=== PATIENT | female | born 1980 | race Hispanic/Latino ===

== ENCOUNTER → 2024-01-13 | Emergency (ER) | payer OTHER ==
[~2024-01-13] MED LIST: KETOROLAC 30 MG/ML INJ ONE; Oxycodone HCl/Acetaminophen 5/325 MG TAB ONE
--- NOTE | 2024-01-13 01:23 | EDPHYS ---
Physician Documentation [facility] Name: Christina Hollingsworth Age: 43 yrs Sex: Female : 1980 Arrival Date: 01/13/2024 Time: 00:16 Bed DX3 Private MD: ED Physician Jose L Toussaint HPI: 01/12 01:17 This 43 yrs old Female presents to ER via Ambulatory with complaints of ci Toothache. 01:17 Patient is a 43-year-old female with no PMH who presents with left-sided dental pain ci that began few weeks ago. Pain is intermittent, sharp, worse in the past 2 nights. Patient here because she is unable to sleep due to pain. Patient has a dentist appointment in 2 days and wanted to come to the ED to get medicine for pain control until she sees the dentist. . MANAGER SHAREPOINT: 00:44 LMP 01/12/2024, unknown jb4 Historical: - Allergies: 00:44 No Known Allergies; jb4 - PMHx: 00:44 None; jb4 - PSHx: 00:44 tubal; wisdom teeth removal; jb4 - Immunization history:: Adult Immunizations up to date. - Social history:: Smoking status: Patient denies any tobacco usage or history of. ROS: 01:17 ENT: Positive for dental pain, Teeth pain ci Exam: 01:17 Constitutional: This is a well developed, well nourished patient who is awake, alert, ci and in no acute distress. Head/Face: Normocephalic, atraumatic. Eyes: Pupils equal round and reactive to light, extra-ocular motions intact. Lids and lashes normal. Conjunctiva and sclera are non-icteric and not injected. Cornea within normal limits. Periorbital areas with no swelling, redness, or edema. Neck: Trachea midline, no thyromegaly or masses palpated, and no cervical lymphadenopathy. Supple, full range of motion without nuchal rigidity, or vertebral point tenderness. No Meningismus. Chest/axilla: Normal chest wall appearance and motion. Nontender with no deformity. No lesions are appreciated. Cardiovascular: Regular rate and rhythm with a normal S1 and S2. No gallops, murmurs, or rubs. Normal PMI, no JVD. No pulse deficits. Respiratory: Lungs have equal breath sounds bilaterally, clear to auscultation and percussion. No rales, rhonchi or wheezes noted. No increased work of breathing, no retractions or nasal flaring. Abdomen/GI: Soft, non-tender, with normal bowel sounds. No distension or tympany. No guarding or rebound. No evidence of tenderness throughout. Back: No spinal tenderness. No costovertebral tenderness. Full range of motion. Skin: Warm, dry with normal turgor. Normal color with no rashes, no lesions, and no evidence of cellulitis. MS/ Extremity: Pulses equal, no cyanosis. Neurovascular intact. Full, normal range of motion. Neuro: Awake and alert, GCS 15, oriented to person, place, time, and situation. Cranial nerves II-XII grossly intact. Motor strength 5/5 in all extremities. Sensory grossly intact. Cerebellar exam normal. Normal gait. Psych: Awake, alert, with orientation to person, place and time. Behavior, mood, and affect are within normal limits. 01:17 ENT: Dental exam: dental caries, pain, that is moderate, Vital Signs: 00:42 BP 137 / 91; Pulse 79; Resp 16; Temp 97.5(TE); Pulse Ox 98% on R/A; Weight 79.38 kg jb4 (R); Height 5 ft. 1 in. ; Pain 10/10; 00:42 Body Mass Index 33.07 (79.38 kg, 154.94 cm) jb4 00:42 Pain Scale: Adult jb4 MDM: 00:47 Patient medically screened. ci 01:17 Differential diagnosis: dental caries, gingivitis, dental abscess, pericoronitis, ci gingivostomatitis. Data reviewed: vital signs, nurses notes. ED course: Patient presents for evaluation of left lower molar dental pain that has been ongoing for several weeks, worse in the past few days. She is nontoxic-appearing, vital signs stable. 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 Low suspicion for Fredy's angina. Plan for pain control, prophylactic antibiotic and discharged with close outpatient follow-up.. Administered Medications: 01:40 Drug: oxyCODONE-acetaminophen PO (5 mg-325 mg) 1 tabs PO once Route: PO; jb4 01:41 Follow up: Response: Medication administered at discharge. jb4 01:40 Drug: Ketorolac IM 30 mg IM once Route: IM; Site: right deltoid; jb4 01:41 Follow up: Response: Medication administered at discharge. jb4 Disposition Summary: 01/13/24 01:22 Discharge Ordered Notes: Location: Home ci Condition: Stable ci Diagnosis - Dental caries, unspecified ci Followup: ci - With: Private Physician - When: 2 - 3 days - Reason: Recheck today's complaints, Re-evaluation by your physician Discharge Instructions: - Discharge Summary Sheet ci - Dental Pain, [id number] ci - Dental Caries, Adult, [id number] ci Forms: - Medication Reconciliation Form ci - Thank You Letter ci - Antibiotic Education ci - Prescription Opioid Use ci - Patient Portal Instructions ci - Leadership Thank You Letter ci Prescriptions: - acetaminophen-codeine 300-15 mg Oral tablet - take 1 tablet ORAL route every 8 hours as needed for pain; 8 tablet; Refills: ci 0, Product Selection Permitted - Amoxicillin 500 mg Oral capsule - take 1 capsule ORAL route every 8 hours for 5 days; 10 tablet; Refills: 0, ci Product Selection Permitted - Anaprox DS 550 mg Oral Tablet - take 1 tablet ORAL route every 12 hours As needed; 20 tablet; Refills: 0, ci Product Selection Permitted Signatures: Star Valentine, RN RN jb4 Jose L Toussaint Corrections: (The following items were deleted from the chart) 00:45 00:44 PSHx: None; jb4 jb4
--- NOTE | 2024-01-13 01:23 | ER ---
Nurse's Notes [facility] Name: Christina Hollingsworth Age: 43 yrs Sex: Female : 1980 Arrival Date: 01/13/2024 Time: 00:16 Bed DX3 Private MD: Diagnosis: Dental caries, unspecified Presentation: 01/12 00:42 Chief complaint: Patient states: I have been having tooth pain on the upper and lower jb4 left side of my mouth radiating into my head. Coronavirus screen: At this time, the client does not indicate any symptoms associated with coronavirus-19. Ebola Screen: No symptoms or risks identified at this time. Initial Sepsis Screen: Does the patient meet any 2 criteria? No. Patient's initial sepsis screen is negative. Does the patient have a suspected source of infection? No. Patient's initial sepsis screen is negative. Risk Assessment: Do you want to hurt yourself or someone else? Patient reports no desire to harm self or others. Onset of symptoms was January 13, 2024. Transition of care: patient was not received from another setting of care. 00:42 Method Of Arrival: Ambulatory jb4 00:42 Acuity: HELEN 4 jb4 Triage Assessment: 00:44 General: Appears in no apparent distress. uncomfortable, Behavior is calm, cooperative, jb4 appropriate for age. Pain: Complains of pain in Left side of mouth Pain radiates to headache Pain currently is 10 out of 10 on a pain scale. EENT: Reports pain in teeth on left side of mouth. Neuro: Level of Consciousness is awake, alert, obeys commands, Oriented to person, place, time, situation. Cardiovascular: Patient's skin is warm and dry. Respiratory: Airway is patent Respiratory effort is even, unlabored, Respiratory pattern is regular, symmetrical. GI: No signs and/or symptoms were reported involving the gastrointestinal system. : No signs and/or symptoms were reported regarding the genitourinary system. Derm: Skin is intact, Skin is pink, warm \T\ dry. Musculoskeletal: Circulation, motion, and sensation intact. Range of motion: intact in all extremities. 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 - Social history:: Smoking status: Patient denies any tobacco usage or history of. Screenin:03 [facility] ED Fall Risk Assessment (Adult) History of falling in the last 3 months, jb4 including since admission No falls in past 3 months (0 pts) Confusion or Disorientation No (0 pts) Intoxicated or Sedated No (0 pts) Impaired Gait No (0 pts) Mobility Assist Device Used No (0 pt) Altered Elimination No (0 pt) Score/Fall Risk Level 0 - 2 = Low Risk Oriented to surroundings, Maintained a safe environment. Abuse screen: Denies threats or abuse. Nutritional screening: No deficits noted. Tuberculosis screening: No symptoms or risk factors identified. Assessment: 02:03 Reassessment: Patient appears in no apparent distress at this time. Patient and/or jb4 family updated on plan of care and expected duration. Pain level reassessed. Patient is alert, oriented x 3, equal unlabored respirations, skin warm/dry/pink. Vital Signs: 00:42 BP 137 / 91; Pulse 79; Resp 16; Temp 97.5(TE); Pulse Ox 98% on R/A; Weight 79.38 kg jb4 (R); Height 5 ft. 1 in. ; Pain 10/10; 00:42 Body Mass Index 33.07 (79.38 kg, 154.94 cm) jb4 00:42 Pain Scale: Adult jb4 ED Course: 00:20 Patient arrived in ED. jj6 00:44 Triage completed. jb4 00:44 Arm band placed on right wrist. jb4 00:46 Jose L Toussaint is Attending Physician. ci 02:03 Patient has correct armband on for positive identification. Provided Education on: jb4 discharge instructions. 02:03 No provider procedures requiring assistance completed. Patient did not have IV access jb4 during this emergency room visit. Administered Medications: 01:40 Drug: oxyCODONE-acetaminophen PO (5 mg-325 mg) 1 tabs PO once Route: PO; jb4 01:41 Follow up: Response: Medication administered at discharge. jb4 01:40 Drug: Ketorolac IM 30 mg IM once Route: IM; Site: right deltoid; jb4 01:41 Follow up: Response: Medication administered at discharge. jb4 Medication: 02:03 VIS not applicable for this client. jb4 Outcome: 01:22 Discharge ordered by . fabien 02:03 Discharged to home ambulatory, jb4 02:03 Condition: stable 02:03 Discharge instructions given to patient, Instructed on discharge instructions, follow up and referral plans. medication usage, Demonstrated understanding of instructions, follow-up care, medications, Prescriptions given X 3, 02:04 Patient left the ED. jb4 Signatures: Star Valentine RN RN jb4 Shani Muñoz jj6 Jose L Toussaint Corrections: (The following items were deleted from the chart) 00:45 00:44 PSHx: None; jb4 jb4
[2024-01-13 02:27] VITALS: BP 137/91; TEMP 97.5; O2SAT 98
== END ==
LOC: ER 00:16
DX: K02.9 Dental caries, unspecified (principal)
CPT/HCPCS: 96372; 99284